=== PATIENT | male | born 1940 | race Caucasian/White ===

== ENCOUNTER 2016-05-03 10:49 | Inpatient (IN) | payer MEDICARE ==
[~2016-05-03] VITALS: Ht 185.4 cm; Wt 84.9 kg
[2016-05-03 10:51] VITALS: BP 118/73; PULSE 102; RESP 20; TEMP 97.7; O2SAT 99
[2016-05-03 11:24] VITALS: BP 131/71; PULSE 99; RESP 20; O2SAT 99
[2016-05-03] MEDS ORDERED: VANCOMYCIN INJ 1,000 MG in SODIUM CHLOR 0.9% 250 ML INJ 250 ML IV ONE (11:30)
[2016-05-03] MEDS ORDERED: SODIUM CHLOR 0.9% 1000 ML INJ 1,000 ML IV SCH (11:30)
[2016-05-03] MEDS ORDERED: PIPERACIL-TAZO 4.5 GM PREMIX 100 ML IV ONE (11:30)
--- NOTE | 2016-05-03 11:30 | PD ---
HPI Chief Complaint: Laceration/Skin Injury Time Seen by Provider: 11:09 Travel History International Travel<30 days: No Contact w/Intl Traveler<30days: No Traveled to known affect area: No History of Present Illness HPI The patient is a 75 year-old male who presents to the emergency department after being referred to the emergency department by podiatry for admission, IV antibiotics, and repeat MRI of the left foot. 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 He notes a chronic ulcer to the bottom of the left foot and states he had an outpatient MRI performed 1 week ago which revealed cellulitis. He then had increasing redness to the left foot and was seen by podiatry and referred to the emergency department for further evaluation. He does note the second toe the left foot has enlarged, is not erythematous, states the erythema spreading up the left foot. He also complains of increasing ulceration on the bottom of the left foot. The patient also complains of toe pain over the second digit of the right foot with small amount of drainage. He also notes a superficial ulceration to the bottom of the right foot. The patient does have a history of diabetes. The patient's primary physician is in [place], [place]. He denies any associated fever, chills, or sweats. PFS Past Medical History Narrative Medical Diabetes Family History Narrative Family History Noncontributory Social History Tobacco Use: No Allergies-Medications (Allergen,Severity, Reaction): Coded Allergies: No Known Allergies (Unverified , 05/03/16) Reported Meds & Prescriptions Reported Meds & Active Scripts Active Reported Lantus Inj (Insulin Glargine) 1,000 Unit/10 Ml Vial 32 Units SQ HS Gabapentin 300 Mg Cap 300 Mg PO HS Digoxin 0.125 Mg Tab 0.125 Mg PO DAILY Warfarin 5 Mg Tab 5 Mg PO DIRECTED ONLY ON SUNDAY Warfarin 2.5 Mg Tab 2.5 Mg PO DAILY Glimepiride 2 Mg Tab 2 Mg PO BIDAC Metformin (Metformin HCl) 500 Mg Tab 500 Mg PO BIDPC With meals Metoprolol Tartrate 50 Mg Tab 50 Mg PO BID Famotidine 20 Mg Tab 20 Mg PO Review of Systems Except as stated in HPI: all other systems reviewed are Neg General / Constitutional: No: Fever HENT: No: Lightheadedness Cardiovascular: No: Chest Pain or Discomfort Respiratory: No: Shortness of Breath Gastrointestinal: No: Nausea, Vomiting, Abdominal Pain Musculoskeletal: Positive: Edema, Pain Neurologic: Positive: Sensory Disturbance Physical Exam Narrative GENERAL: Awake, alert, pleasant 75-year-old male who appears his stated age and is in no acute respiratory distress. SKIN: Warm and dry. HEAD: Atraumatic. Normocephalic. EYES: Pupils equal and round. No scleral icterus. No injection or drainage. ENT: Patient has a lesion over the bridge of the right nose, possible squamous cell versus basal cell. NECK: Trachea midline. No JVD. CARDIOVASCULAR: Regular, heart rate 102. RESPIRATORY: No accessory muscle use. Clear to auscultation. Breath sounds equal bilaterally. GASTROINTESTINAL: Abdomen soft, non-tender, nondistended. No rebound tenderness. MUSCULOSKELETAL: Patient has an ulceration on the bottom of the left foot with mild erythema. The dorsal aspect left foot is edematous, erythematous, with erythema and edema of the second digit left foot. The patient also has an open draining wound on the distal aspect of the second digit right foot with purulent drainage. Superficial ulceration on the bottom of the right foot. Positive distal pulses. NEUROLOGICAL: Awake and alert. No obvious cranial nerve deficits. Motor grossly within normal limits. Normal speech. PSYCHIATRIC: Appropriate mood and affect; insight and judgment normal. Data Data Last Documented VS Vital Signs Date Time Temp Pulse Resp B/P Pulse Ox O2 Delivery O2 Flow Rate FiO2 05/03/16 11:24 99 20 131/71 99 05/03/16 10:51 97.7 Room Air Orders Complete Blood Count With Diff (05/03/16 11:21) Comprehensive Metabolic Panel (05/03/16 11:21) Lactic Acid (05/03/16 11:21) Blood Culture (05/03/16 11:21) Mri Foot W&W/O Contrast (05/03/16 ) C-Reactive Protein (Crp) (05/03/16 11:21) Vancomycin Inj (Vancomycin Inj) (05/03/16 11:30) Piperacil-Tazo 4.5 Gm Premix (Zosyn 4.5 (05/03/16 11:30) Sodium Chlor 0.9% 1000 Ml Inj (Ns 1000 M (05/03/16 11:30) Wound Culture And Gram Stain (05/03/16 11:21) Consult Podiatry (05/03/16 ) Admit Order (Ed Use Only) (05/03/16 13:35) Labs Laboratory Tests Test 05/03/16 05/03/16 11:55 12:30 White Blood Count 9.6 TH/MM3 Red Blood Count 4.02 MIL/MM3 Hemoglobin 12.9 GM/DL Hematocrit 38.9 % Mean Corpuscular Volume 96.7 FL Mean Corpuscular Hemoglobin 32.0 PG Mean Corpuscular Hemoglobin 33.1 % Concent Red Cell Distribution Width 15.1 % Platelet Count 316 TH/MM3 Mean Platelet Volume 6.6 FL Neutrophils (%) (Auto) 68.9 % Lymphocytes (%) (Auto) 21.0 % Monocytes (%) (Auto) 7.5 % Eosinophils (%) (Auto) 1.6 % Basophils (%) (Auto) 1.0 % Neutrophils # (Auto) 6.6 TH/MM3 Lymphocytes # (Auto) 2.0 TH/MM3 Monocytes # (Auto) 0.7 TH/MM3 Eosinophils # (Auto) 0.2 TH/MM3 Basophils # (Auto) 0.1 TH/MM3 CBC Comment DIFF FINAL Differential Comment Lactic Acid Level 2.2 mmol/L Sodium Level 132 MEQ/L Potassium Level 4.2 MEQ/L Chloride Level 100 MEQ/L Carbon Dioxide Level 25.3 MEQ/L Anion Gap 7 MEQ/L Blood Urea Nitrogen 15 MG/DL Creatinine 1.28 MG/DL Estimat Glomerular Filtration 55 ML/MIN Rate Random Glucose 236 MG/DL Calcium Level 8.6 MG/DL Total Bilirubin 0.4 MG/DL Aspartate Amino Transf 17 U/L (AST/SGOT) Alanine Aminotransferase 20 U/L (ALT/SGPT) Alkaline Phosphatase 90 U/L C-Reactive Protein 3.60 MG/DL Total Protein 8.4 GM/DL Albumin 2.7 GM/DL MDM Medical Decision Making Medical Screen Exam Complete: Yes Emergency Medical Condition: Yes Medical Record Reviewed: Yes Interpretation(s) Laboratory Tests Test 05/03/16 05/03/16 11:55 12:30 White Blood Count 9.6 TH/MM3 Red Blood Count 4.02 MIL/MM3 Hemoglobin 12.9 GM/DL Hematocrit 38.9 % Mean Corpuscular Volume 96.7 FL Mean Corpuscular Hemoglobin 32.0 PG Mean Corpuscular Hemoglobin 33.1 % Concent Red Cell Distribution Width 15.1 % Platelet Count 316 TH/MM3 Mean Platelet Volume 6.6 FL Neutrophils (%) (Auto) 68.9 % Lymphocytes (%) (Auto) 21.0 % Monocytes (%) (Auto) 7.5 % Eosinophils (%) (Auto) 1.6 % Basophils (%) (Auto) 1.0 % Neutrophils # (Auto) 6.6 TH/MM3 Lymphocytes # (Auto) 2.0 TH/MM3 Monocytes # (Auto) 0.7 TH/MM3 Eosinophils # (Auto) 0.2 TH/MM3 Basophils # (Auto) 0.1 TH/MM3 CBC Comment DIFF FINAL Differential Comment Lactic Acid Level 2.2 mmol/L Sodium Level 132 MEQ/L Potassium Level 4.2 MEQ/L Chloride Level 100 MEQ/L Carbon Dioxide Level 25.3 MEQ/L Anion Gap 7 MEQ/L Blood Urea Nitrogen 15 MG/DL Creatinine 1.28 MG/DL Estimat Glomerular Filtration 55 ML/MIN Rate Random Glucose 236 MG/DL Calcium Level 8.6 MG/DL Total Bilirubin 0.4 MG/DL Aspartate Amino Transf 17 U/L (AST/SGOT) Alanine Aminotransferase 20 U/L (ALT/SGPT) Alkaline Phosphatase 90 U/L C-Reactive Protein 3.60 MG/DL Total Protein 8.4 GM/DL Albumin 2.7 GM/DL Differential Diagnosis Differential diagnosis includes cellulitis, abscess, infected wound, diabetic foot ulcer, osteomyelitis. Narrative Course IV was established, labs were drawn and sent, and the patient was placed on cardiac telemetry monitoring and continuous pulse oximetry monitoring. An MRI with and without contrast was ordered per podiatry's recommendations to evaluate for possible abscess and/or osteomyelitis. The patient was administered vancomycin and Zosyn after blood cultures and lactic acid were sent to lab. The patient was placed on maintenance IV fluids. The patient's white count is normal, lactic acid is minimally elevated at 2.2. MRI is pending. Consult was placed to podiatry. I discussed the patient with the on- call hospitalist, Dr. Shore, who agrees with admission. Physician Communication Physician Communication I discussed the patient with Dr. Shore who with agrees with admission. Diagnosis Primary Impression: Cellulitis of left foot Admitting Information Admitting Physician Requests: Admit Condition: Stable Joseph Lopez MD May 03, 2016 11:30
[2016-05-03 12:08] LABS: AUTOMATED NEUTROPHIL # 6.6 TH/MM3 (1.8-7.7); BASOPHIL # 0.1 TH/MM3 (0-0.2); EOSINOPHIL # 0.2 TH/MM3 (0-0.4); EOSINOPHIL % 1.6 % (0.0-4.0); HEMATOCRIT 38.9 % (39.0-51.0); HEMO FLAGS DIFF FINAL; MEAN CELL VOLUME 96.7 FL (80.0-100.0); MEAN CORPUSCULAR HGB CONC 33.1 % (32.0-36.0); MONO % 7.5 % (0.0-8.0); NEUT % 68.9 % (16.0-70.0); PLATELET COUNT 316 TH/MM3 (150-450); RED BLOOD COUNT 4.02 MIL/MM3 (4.50-5.90); RED CELL DISTRIBUTION WIDTH 15.1 % (11.6-17.2); WHITE BLOOD COUNT 9.6 TH/MM3 (4.0-11.0)
[2016-05-03] MEDS ORDERED: DIGO0.12 PO (12:52)
[2016-05-03] MEDS ORDERED: GLIM2TAB PO (12:52)
[2016-05-03] MEDS ORDERED: FAMO20TA2 PO (12:52)
[2016-05-03] MEDS ORDERED: GABA300C5 PO (12:52)
[2016-05-03] MEDS ORDERED: METO50TA PO (12:52)
[2016-05-03] MEDS ORDERED: WARF-23 PO (12:52)
[2016-05-03] MEDS ORDERED: WARF-18 PO (12:52)
[2016-05-03] MEDS ORDERED: METF500T PO (12:52)
[2016-05-03] MEDS ORDERED: LANTUS2P SQ (12:52)
[2016-05-03 13:06] LABS: ANION GAP 7 MEQ/L (5-15); AST (GOT) 17 U/L (15-37); BICARBONATE 25.3 MEQ/L (21.0-32.0); BLOOD UREA NITROGEN 15 MG/DL (7-18); CHLORIDE 100 MEQ/L (98-107); GLOMERULAR FILTRATION RATE 55 ML/MIN (>89); POTASSIUM 4.2 MEQ/L (3.5-5.1); SODIUM (NA) 132 MEQ/L (136-145)
[2016-05-03 13:10] LABS: ALKALINE PHOSPHATASE 90 U/L (45-117); ALT (GPT) 20 U/L (12-78); TOTAL BILIRUBIN ADULT 0.4 MG/DL (0.2-1.0)
[2016-05-03] MEDS ORDERED: GLUCAGON 1 MG/ML VIAL OTHER PRN (13:45)
[2016-05-03] MEDS ORDERED: NALOXONE HCL 0.4 MG/ML AMP IV PRN (13:45)
[2016-05-03] MEDS ORDERED: SODIUM CHLORIDE 0.9% FLUSH 5 ML FLUSH FLUSH PRN (13:45)
[2016-05-03] MEDS ORDERED: ACETAMINOPHEN 325 MG TAB PO PRN (13:45)
[2016-05-03] MEDS ORDERED: Vancomycin Consult Pharmacy 1 EA OTHER SCH (13:45)
[2016-05-03] MEDS ORDERED: ONDANSETRON HCL 4 MG/2 ML VIAL IVP PRN (13:45)
[2016-05-03] MEDS ORDERED: MAGNESIUM HYDROXIDE SUSP 30 ML CUP PO PRN (13:45)
[2016-05-03] MEDS ORDERED: DEXTROSE 50% IN WATER 50 ML VIAL(D50) IV PUSH PRN (13:45)
[2016-05-03] MEDS ORDERED: GADODIAMIDE PF 287 MG/ML 20 ML VIAL (for RAD MRI) IV ONE (14:33)
[2016-05-03] MEDS: INSULIN ASPART SUPPLEMENTAL SCALE SQ SCH ×2 (16:49→21:00)
--- NOTE | 2016-05-03 17:23 | HHI.HP ---
[facility] Primary [facility] Physician Ian Lambert MD Admission Diagnosis cellulitis left foot rule out osteomyelitis Diagnoses: Chief Complaint: Nonhealing ulceration plantar surface left foot with cellulitis Travel History International Travel<30 Days: No Contact w/Intl Traveler <30 Da: No Traveled to Known Affected Are: No History of Present Illness This is a pleasant 75-year-old male patient with past medical history which includes insulin-dependent diabetes mellitus, bleeding duodenal ulcer myocardial infarction CAD s/p cardiac stent and atrial fibrillation followed by Dr. De Paz. Patient reports approximately 4 months ago he stepped on a trimmer helper with his left foot and has been following with outpatient president practicing urologist reports that the pain left foot has had constant aching pain for the past 4 months but over the past 2 days the pain has been increased has increased in intensity. Patient also reports edema of the left foot with redness over the past 2 days. Patient was referred to the emergency department for MRI and evaluation by Dr. España by his outpatient president practicing urologist. Patient noted to have open ulceration plantar surface left foot and erythema to second digit left foot. Right foot second digit erythematous with ulceration present non- ulceration present plantar surface of right foot as well. Patient denies chest pain shortness of breath nausea vomiting diarrhea constipation fevers or chills Review of Systems Other All other systems reviewed and negative except as mentioned in history of present illness Past Family Social History Past Medical History insulin-dependent diabetes mellitus, bleeding duodenal ulcer myocardial infarction CAD s/p cardiac stent and atrial fibrillation Past Surgical History Cardiac stents Reported Medications Lantus Inj (Insulin Glargine) 1,000 Unit/10 Ml Vial 32 Units SQ HS Gabapentin 300 Mg Cap 300 Mg PO HS Digoxin 0.125 Mg Tab 0.125 Mg PO DAILY Warfarin 5 Mg Tab 5 Mg PO DIRECTED ONLY ON SUNDAY Warfarin 2.5 Mg Tab 2.5 Mg PO DAILY Glimepiride 2 Mg Tab 2 Mg PO BIDAC Metformin (Metformin HCl) 500 Mg Tab 500 Mg PO BIDPC With meals Metoprolol Tartrate 50 Mg Tab 50 Mg PO BID Famotidine 20 Mg Tab 20 Mg PO Allergies: Coded Allergies: No Known Allergies (Unverified , 05/03/16) Active Ordered Medications Current Medications Medications (Trade) Dose Ordered Sig/Cornelio Route Start Time Stop Time Status Last Admin (Lanoxin) 0.125 mg DAILY PO 05/04/16 09:00 (Neurontin) 300 mg HS PO 05/03/16 21:00 (Levemir Inj) 32 units HS SQ 05/03/16 21:00 Hold (Lopressor) 50 mg BID PO 05/03/16 21:00 (NS Flush) 2 ml UNSCH PRN FLUSH 05/03/16 13:45 (NS Flush) 2 ml BID FLUSH 05/03/16 21:00 (Tylenol) 650 mg Q4H PRN PO 05/03/16 13:45 (Zofran Inj) 4 mg Q6H PRN IVP 05/03/16 13:45 (Milk Of Magnesia Liq) 30 ml Q12H PRN PO 05/03/16 13:45 Naloxone HCl 0.4 mg 0.4 mg UNSCH PRN IV 05/03/16 13:45 Pharmacy Profile Note 0 ml @ 0 mls/hr UNSCH OTHER 05/03/16 13:45 (Zosyn 3.375 Gm Premix) 50 ml @ 100 mls/hr Q8H IV 05/03/16 20:00 (D50w (Vial) Inj) 25 ml UNSCH PRN IV PUSH 05/03/16 13:45 Glucagon 1 mg 1 mg UNSCH PRN OTHER 05/03/16 13:45 (Vancomycin Inj/ NS 500 ml Inj) 513 ml @ 250 mls/hr Q18H IV 05/04/16 04:00 Miscellaneous Information SPECIFIC LAB TO BE DRAWN:VANCOMY... ONCE ONCE XX 05/05/16 15:45 05/05/16 15:46 (Levemir Inj) 15 units HS SQ 05/03/16 21:00 05/03/16 23:00 Family History Patient reports he does not know his mother father or family past medical history Social History Denies tobacco use EtOH use or illicit drug use Physical Exam Vital Signs Vital Signs Date Time Temp Pulse Resp B/P Pulse Ox O2 Delivery O2 Flow Rate FiO2 05/03/16 11:24 99 20 131/71 99 05/03/16 10:51 97.7 102 20 118/73 99 Room Air Physical Exam GENERAL: This is a well-nourished, well-developed patient, in no apparent distress. SKIN: open ulceration plantar surface left foot and erythema to second digit left foot. Right foot second digit erythematous with ulceration present non- ulceration present plantar surface of right foot as well. HEAD: Atraumatic. Normocephalic. No temporal or scalp tenderness. EYES: Pupils equal round and reactive. Extraocular motions intact. No scleral icterus. No injection or drainage. ENT: Nose without bleeding, purulent drainage or septal hematoma. Throat without erythema, tonsillar hypertrophy or exudate. Uvula midline. Airway patent. NECK: Trachea midline. No JVD or lymphadenopathy. Supple, nontender, no meningeal signs. CARDIOVASCULAR: Irregularly irregular rhythm, rate controlled RESPIRATORY: Faint crackles right base cleared with cough GASTROINTESTINAL: Abdomen soft, non-tender, nondistended. No hepato-splenomegaly , or palpable masses. No guarding. MUSCULOSKELETAL: No calf tenderness. Negative Homans sign bilaterally. NEUROLOGICAL: Awake and alert. Motor and sensory grossly within normal limits. Five out of 5 muscle strength in all muscle groups. Normal speech. Laboratory Laboratory Tests Test 05/03/16 05/03/16 11:55 12:30 White Blood Count 9.6 Red Blood Count 4.02 Hemoglobin 12.9 Hematocrit 38.9 Mean Corpuscular Volume 96.7 Mean Corpuscular Hemoglobin 32.0 Mean Corpuscular Hemoglobin 33.1 Concent Red Cell Distribution Width 15.1 Platelet Count 316 Mean Platelet Volume 6.6 Neutrophils (%) (Auto) 68.9 Lymphocytes (%) (Auto) 21.0 Monocytes (%) (Auto) 7.5 Eosinophils (%) (Auto) 1.6 Basophils (%) (Auto) 1.0 Neutrophils # (Auto) 6.6 Lymphocytes # (Auto) 2.0 Monocytes # (Auto) 0.7 Eosinophils # (Auto) 0.2 Basophils # (Auto) 0.1 CBC Comment DIFF FINAL Differential Comment Lactic Acid Level 2.2 Sodium Level 132 Potassium Level 4.2 Chloride Level 100 Carbon Dioxide Level 25.3 Anion Gap 7 Blood Urea Nitrogen 15 Creatinine 1.28 Estimat Glomerular Filtration 55 Rate Random Glucose 236 Calcium Level 8.6 Total Bilirubin 0.4 Aspartate Amino Transf 17 (AST/SGOT) Alanine Aminotransferase 20 (ALT/SGPT) Alkaline Phosphatase 90 C-Reactive Protein 3.60 Total Protein 8.4 Albumin 2.7 Date/Time Procedure Status Source Growth 05/03/16 11:55 Gram Stain Received Wound Toe Pending 05/03/16 11:55 Wound Culture Received Wound Toe Pending 05/03/16 11:55 Aerobic Blood Culture Received Blood Peripheral Pending 05/03/16 11:55 Anaerobic Blood Culture Received Blood Peripheral Pending Result Diagram: 05/03/16 1155 05/03/16 1230 Assessment and Plan Assessment and Plan This is a pleasant 75-year-old male patient with past medical history which includes insulin-dependent diabetes mellitus, bleeding duodenal ulcer myocardial infarction CAD s/p cardiac stent and atrial fibrillation followed by Dr. De Paz. Patient reports approximately 4 months ago he stepped on a trimmer helper with his left foot and has been following with outpatient president practicing urologist reports that the pain left foot has had constant aching pain for the past 4 months but over the past 2 days the pain has been increased has increased in intensity. Patient also reports edema of the left foot with redness over the past 2 days. Patient was referred to the emergency department for MRI and evaluation by Dr. España by his outpatient president practicing urologist. Cellulitis left foot rule out abscess/osteomyelitis Failed outpatient therapy Consult Dr. España podiatry Zosyn and vancomycin given in emergency department will continue Zosyn and vancomycin with pharmacy to dose Blood cultures obtained and pending Wound culture pending MRI left foot ordered and pending Possible upcoming procedure tomorrow will give patient half of regular Levemir dose tonight and NPO after midnight Diabetes mellitus will hold the glimepiride and metformin Accu-Cheks before meals at bedtime with sliding scale insulin coverage Hold patient's Levemir 32 units daily at bedtime half home Levemir dose as patient is nothing by mouth after midnight Atrial fibrillation continue digoxin and metoprolol Hold Coumadin ending procedure DVT prophylaxis patient was on Coumadin prior to admission currently on hold will Discussed with ER provider, patient, RN and Dr. hSore Discussed Condition With The exam, history, and the medical decision-making described in the above note were completed with the assistance of the mid-level provider. I reviewed and agree with the findings presented. I attest that I had a [id number] encounter with the patient on the same day, and personally performed and documented my assessment and findings in the medical record. Patient admitted with a diabetic foot ulcer requiring surgical intervention. Plan per podiatry for intervention in the AM. Physician Certification 2 Midnight Certification Type: Admission for Inpatient Services Order for Inpatient Services The services are ordered in accordance with Medicare regulations or non- Medicare payer requirements, as applicable. In the case of services not specified as inpatient-only, they are appropriately provided as inpatient services in accordance with the 2-midnight benchmark. Estimated LOS (days): 4 days is the estimated time the patient will need to remain in the hospital, assuming treatment plan goals are met and no additional complications. Post-Hospital Plan: Home Karin Gutierrez May 03, 2016 17:23 Ankita Shore MD May 03, 2016 23:22
[2016-05-03 17:45] VITALS: BP 127/70; PULSE 86; RESP 20; TEMP 97.4; O2SAT 99
[2016-05-03 19:25] LABS: APTT (PATIENT) 47.6 SEC (24.3-30.1); INTERNATIONAL NORMALIZED RATIO 3.3 RATIO; PROTHROMBIN TIME - PATIENT 38.8 SEC (9.8-11.6)
[2016-05-03] MEDS: PIPERACIL-TAZO 3.375 GM PREMIX 50 ML IV SCH (20:00)
[2016-05-03] MEDS: SODIUM CHLORIDE 0.9% FLUSH 5 ML FLUSH FLUSH SCH (21:00)
[2016-05-03] MEDS ORDERED: INSULIN DETEMIR 100 UNITS/ML VIAL SQ SCH (21:00)
[2016-05-03 21:07] VITALS: BP 125/75; PULSE 92; RESP 16; TEMP 98; O2SAT 98
[2016-05-03] MEDS: GABAPENTIN 300 MG CAP PO SCH (21:20)
[2016-05-03] MEDS: METOPROLOL TARTRATE 50 MG TAB PO SCH (21:20)
[2016-05-04 00:05] VITALS: BP 115/65; PULSE 80; RESP 16; TEMP 97.9; O2SAT 96
[2016-05-04] MEDS ORDERED: VANCOMYCIN INJ 1,000 MG in SODIUM CHLOR 0.9% 250 ML INJ 250 ML IV SCH (01:00)
[2016-05-04] MEDS: PIPERACIL-TAZO 3.375 GM PREMIX 50 ML IV SCH ×3 (03:05→20:29)
[2016-05-04] MEDS ORDERED: VANCOMYCIN INJ 1,300 MG in SODIUM CHLORID 0.9% 500 ML INJ 500 ML IV SCH (04:00)
[2016-05-04 05:15] VITALS: BP 143/68; PULSE 77; RESP 16; TEMP 97.6; O2SAT 96
[2016-05-04] MEDS: INSULIN ASPART SUPPLEMENTAL SCALE SQ SCH ×3 (06:42→20:56)
[2016-05-04 08:00] VITALS: BP 120/69; PULSE 68; RESP 20; TEMP 97.7; O2SAT 99
--- NOTE | 2016-05-04 08:13 | MB ---
cc: JJ MIN DPM DATE OF CONSULTATION 05/03/2016 REASON FOR CONSULTATION Right second digit ulcer, left foot second digit ulcer, possible osteomyelitis left second metatarsal. HISTORY OF PRESENT ILLNESS This is a 75-year-old male who is known to my associate, Dr. Kasper. There has been increased purulence and drainage within the last one week. The patient has known clinical osteomyelitis probing deep. The patient was instructed by Dr. Kasper to go to the hospital for now definitive treatment. Currently, I am seeing the patient bedside with his family. He has had the ulcer of the bilateral feet for many months. The right foot has not ever infected, however has been an issue. The left foot has been an issue for greater than four weeks. They wish for a more definitive plan. He is seen bedside with his son. PAST MEDICAL HISTORY Positive for: 1. Insulin-dependent diabetes 2. Duodenal ulcer 3. History of myocardial infarction. 4. CAD status post stent placement with a history of atrial fibrillation. MEDICATIONS Reported outpatient medications, he is on Coumadin. Please see complete med list in chart. Inpatient medications, he is receivin. Vancomycin 2. Zosyn ALLERGIES There are no known drug allergies. PHYSICAL EXAM VITALS: Temperature is 97.6, pulse rate 77, respiratory rate 16, blood pressure 143/68. He is sating 96% on room air. GENERAL: This is an alert and oriented male seen bedside exhibiting nonlabored respirations. EXTREMITIES: Right lower extremity is examined. There is noted to be a semi-reducible hammer toe contracture with distal partial thickness ulcer of the right second digit. It does not appear to be inflamed, have drainage on probing deep. There is also a prominent second metatarsal head with callus formation of the ball of the foot plantarly. Right foot pedal pulses are palpable. Sensation is absent to light touch distal to the ankle, but intact to deep pressure. There is good muscle strength. There is no crepitus or instability. The left lower extremity is examined. There is a full-thickness ulceration. There at the plantar aspect of the second metatarsal head. Upon pressure to the area, there is drainage. This appears to probe deep possibly the second metatarsal, as well as proximal phalanx base. There is a rigid contracture with a partial thickness ulcer at the distal aspect of the left second digit. Pedal pulses are palpable of the left foot, however sensation is not intact to light touch or deep pressure distal to the patient's ankle. There is good muscle strength. No crepitus or instability of the foot or ankle. LABORATORY FINDINGS White blood cell 9.6, hemoglobin/hematocrit 12 and 38, platelet count 316. Chem-7 sodium 132, potassium is 4.2, chloride 100, CO2 25, BUN is 15, random glucose is 236. Coagulation profile, INR is 3.3, blood culture and wound culture ordered and pending. MRI has not been formally read by radiologist, but there appears to be concerned for osteomyelitis at the level of the second digit as well as second metatarsal head with possible deep abscess back to ASSESSMENT/PLAN 1. Right second digit ulcer with pre-ulcerative lesion, digit contracture right foot. 2. Left second digit ulcer, left forefoot ulcer with likely osteomyelitis of the left second metatarsal head, as well as base of proximal phalanx left second digit. PLAN We will long discussion regarding treatment options including debridement and long-term IV antibiotics. The patient wished for more definitive treatment. We opted to move forward with a flexor tenotomy of the right second digit with metatarsal head resection to alleviate pressure. The left foot we opted for second digit amputation with removal of infected bone second metatarsal head. The patient may need long-term IV antibiotics. We will plan to do this within the next 12-24 hours. The patient will likely need infectious disease consultation if the bone margin appears to be positive for osteomyelitis. However, I will do my best to resect the majority of the infection. The patient understood there are risks, possible need for more surgery, need for more amputation, deformity. No guarantees were given or implied. The patient understood and wished to proceed with my surgical plan. CANDELARIA Duenas/ASHVIN /7:37 AM 7:51 AM
--- NOTE | 2016-05-04 08:57 | RADRPT ---
EXAM DATE/TIME: 05/03/2016 14:04 [facility] COMPARISON: No previous studies available for comparison. INDICATIONS : Cellulitis. CONTRAST: 16 cc Omniscan (gadodiamide) IV MEDICAL HISTORY : Diabetes mellitus type 2. SURGICAL HISTORY : None. ENCOUNTER: Initial ACUITY: 2 day PAIN SCORE: 4/10 LOCATION: Left Foot TECHNIQUE: Multiplanar, multisequence MRI examination was performed without contrast and after the intravenous a dministration of gadolinium. FINDINGS: There is a deep soft tissue ulcer plantar to the first and second metatarsophalangeal joints. Abnorma l edema, induration and enhancement seen extending down to the second metatarsophalangeal joint and t o a lesser extent the first and third. The soft tissue edema tracks proximally along flexor digitorum brevis all the way to the calcaneal origin of the muscle. I don't see a drainable soft tissue absces s. The signal changes are seen almost throughout but especially the plantar aspect of the second toe proximal phalanx and also focally of the plantar aspect of the second metatarsal head. The soft tissu e signal changes are in close proximity to the fibular sesamoid but I don't see clear osteomyelitis o f this bone, the first metatarsophalangeal joint or the third metatarsophalangeal joint. CONCLUSION: 1. Deep soft tissue ulcer plantar/medial forefoot and with associated osteomyelitis of the second toe proximal phalanx and focally of the plantar margin of the second metatarsal head. 2. Reactive versus infectious myositis extends proximally to the level of the hindfoot, primarily wit hin the flexor digitorum brevis muscle. No drainable abscess. Ian Fernandes MD on May 04, 2016 at 8:48 Board Certified Radiologist. This report was verified electronically.
[2016-05-04] MEDS: METOPROLOL TARTRATE 50 MG TAB PO SCH ×2 (09:42→20:52)
[2016-05-04] MEDS: SODIUM CHLORIDE 0.9% FLUSH 5 ML FLUSH FLUSH SCH ×2 (09:43→20:37)
[2016-05-04] MEDS: DIGOXIN 0.125 MG TAB PO SCH (09:43)
[2016-05-04 09:46] LABS: ALKALINE PHOSPHATASE 78 U/L (45-117); ALT (GPT) 17 U/L (12-78); ANION GAP 6 MEQ/L (5-15); AST (GOT) 13 U/L (15-37); BICARBONATE 26.2 MEQ/L (21.0-32.0); BLOOD UREA NITROGEN 16 MG/DL (7-18); CHLORIDE 98 MEQ/L (98-107); GLOMERULAR FILTRATION RATE 60 ML/MIN (>89); POTASSIUM 3.9 MEQ/L (3.5-5.1); SODIUM (NA) 130 MEQ/L (136-145); TOTAL BILIRUBIN ADULT 0.4 MG/DL (0.2-1.0)
--- NOTE | 2016-05-04 10:53 | HHI.PR ---
Subjective Remarks Patient reports that he is feeling okay. Awaiting surgery today. Objective Vitals Vital Signs Date Time Temp Pulse Resp B/P Pulse Ox O2 Delivery O2 Flow Rate FiO2 05/04/16 08:00 97.7 68 20 120/69 99 05/04/16 05:15 97.6 77 16 143/68 96 05/04/16 00:05 97.9 80 16 115/65 96 05/03/16 21:07 98.0 92 16 125/75 98 05/03/16 20:30 Room Air 05/03/16 17:45 97.4 86 20 127/70 99 05/03/16 11:24 99 20 131/71 99 05/03/16 10:51 97.7 102 20 118/73 99 Room Air I/O 05/03/16 05/03/16 05/03/16 05/04/16 05/04/16 05/04/16 07:00 15:00 23:00 07:00 15:00 23:00 Intake Total 480 ml 0 ml Output Total 575 ml 650 ml Balance -95 ml -650 ml Intake Oral 480 ml 0 ml Output Urine Total 575 ml 650 ml # Voids 1 # Bowel Movements 0 0 Result Diagram: 05/03/16 1155 05/04/16 0750 Imaging Last Impressions Foot MRI 05/03/16 0000 Signed Impressions: Service Date/Time: Tuesday, May 03, 2016 14:04 - CONCLUSION: 1. Deep soft tissue ulcer plantar/medial forefoot and with associated osteomyelitis of the second toe proximal phalanx and focally of the plantar margin of the second metatarsal head. 2. Reactive versus infectious myositis extends proximally to the level of the hindfoot, primarily within the flexor digitorum brevis muscle. No drainable abscess. Ian Fernandes MD Objective Remarks GENERAL: This is a well-nourished, well-developed patient, in no apparent distress. SKIN: open ulcer plantar surface left foot and erythema to second digit left foot. Right foot second digit erythematous with ulceration present. Another non ulcerated area pressure point on the right plantar surface. CARDIOVASCULAR: Normal rate and regular rhythm without murmurs, gallops, or rubs. RESPIRATORY: Good respiratory efforts. Breath sounds equal and clear to auscultation bilaterally. GASTROINTESTINAL: Abdomen soft, non-tender, non-distended. Normal active bowel sounds MUSCULOSKELETAL: Extremities without cyanosis, or edema. NEURO: Alert & Oriented x4 to person, place, time, situation. Moves all ext x4 PSYCH: Appropriate mood and affect. A/P Assessment and Plan 75-year-old male patient with: Diabetic left foot wound/osteomyelitis Failed outpatient therapy Consult Dr. España following. Plan for debridement today. Awaiting op findings, likely need ID consult. Continue Zosyn and vancomycin with pharmacy to dose Blood cultures obtained and pending Wound culture pending Diabetes mellitus: hold glimepiride and metformin Accu-Cheks before meals at bedtime with sliding scale insulin coverage Hold patient's Levemir 32 units daily at bedtime half home Levemir dose for preop Atrial fibrillation continue digoxin and metoprolol Hold Coumadin pending procedure DVT prophylaxis patient was on Coumadin prior to admission currently on hold will Ankita Shore MD May 04, 2016 10:53
[2016-05-04 12:00] VITALS: BP 120/68; PULSE 68; RESP 20; TEMP 98.7; O2SAT 99
[2016-05-04] MEDS ORDERED: ONDANSETRON HCL 4 MG/2 ML VIAL IV PUSH ONE (12:00)
[2016-05-04] MEDS ORDERED: ePHEDrine/NS 50 MG/5 ML SYR IV ONE (12:00)
[2016-05-04] MEDS ORDERED: PHENYLEPH/NS 1000 MCG/10 ML SYR IV ONE (12:00)
[2016-05-04] MEDS ORDERED: PROPOFOL 200 MG/20 ML AMP IV ONE (12:00)
--- NOTE | 2016-05-04 14:09 | EKG ---
Date Performed: 05/04/2016 Time Performed: 08:29:12 PTAGE: 75 years EKG: ATRIAL FIBRILLATION ST DEVIATION AND MODERATE T-WAVE ABNORMALITY, CONSIDER LATERAL ISCHEMIA Clinical correlation is recommended ABNORMAL ECG NO PREVIOUS TRACING DOCTOR: Mode Zayas Interpretating Date/Time 05/04/2016 14:08:36
[2016-05-04] MEDS ORDERED: BUPIVACAINE HCL PF 0.25% 30 ML VIAL ONE (15:07)
[2016-05-04] MEDS ORDERED: BUPIVACAINE HCL PF 0.5% 30 ML VIAL ONE (15:31)
[2016-05-04] MEDS ORDERED: ceFAZolin INJ 1,000 MG VIAL ONE (15:31)
[2016-05-04] MEDS ORDERED: GENTAMICIN SULFATE 80 MG/2 ML VIAL ONE (15:31)
[2016-05-04] MEDS ORDERED: FAMOTIDINE 20 MG/2 ML VIAL ONE (15:59)
[2016-05-04] MEDS ORDERED: MIDAZOLAM HCL 2 MG/2 ML VIAL ONE ×2 (15:59→18:31)
--- NOTE | 2016-05-04 18:22 | HHI.PR ---
Immediate Post Op Note Procedure Date: May 04, 2016 Pre Op Diagnosis: right 2nd digit hammertoe, metatarsalgia left 2nd digit OM, ulcer, metatarsalgia Post Op Diagnosis: same Surgeon: Bebeto Valle Reception Clerk(s): scrub Procedure: Right 2nd digit flexor tenotomy with 2nd metatarsal head resection Left 2nd digit amputation, 2nd metatarsal head resection, ulcer ellipse and wound closure plantar foot Findings: see op dict Complications: none Specimen(s) removed: bn rt and left ft for path, micro bone swab rt and left for micro Estimated blood loss: less 50 mL Anesthesia: General, Local Drains: Other IVF Patient to: Other Patient Condition: Good Implant/Devices: SEE IMPLANT LOG (if applicable) Date/Time of Procedure: SEE SURGICAL CARE RECORD Bebeto Valle DPM May 04, 2016 18:22
[2016-05-04] MEDS ORDERED: *morphine SULFATE 8 MG/ML PERIprocedure ONLY ONE ×2 (18:30→18:43)
[2016-05-04 20:24] VITALS: BP 132/81; PULSE 82; RESP 16; TEMP 96; O2SAT 99
[2016-05-04] MEDS: GABAPENTIN 300 MG CAP PO SCH (20:52)
[2016-05-04] MEDS: MORPHINE SULFATE 4 MG/ML INJ IV PUSH PRN (22:09)
[2016-05-04] MEDS: VANCOMYCIN INJ 1,500 MG in SODIUM CHLORID 0.9% 500 ML INJ 500 ML IV SCH (22:56)
[2016-05-04] MEDS ORDERED: PHARMACY ORDERED LAB XX ONE (23:45)
[2016-05-05] VITALS (7 sets, daily range): BP systolic 102–119; BP diastolic 58–73; PULSE 68–95; RESP 17–20; TEMP 96.3–97.7; O2SAT 95–98
[2016-05-05] MEDS: MORPHINE SULFATE 4 MG/ML INJ IV PUSH PRN ×5 (03:45→19:49)
[2016-05-05] MEDS: PIPERACIL-TAZO 3.375 GM PREMIX 50 ML IV SCH ×3 (04:15→19:52)
[2016-05-05] MEDS: INSULIN ASPART SUPPLEMENTAL SCALE SQ SCH ×4 (06:21→20:21)
--- NOTE | 2016-05-05 07:05 | MP ---
cc: [facility] DATE OF SURGERY 05/04/2016 DATE OF 1940 PREOPERATIVE DIAGNOSIS Right second digit hammertoe with metatarsalgia, left second digit osteomyelitis ulcer with osteomyelitis of second metatarsal. POSTOPERATIVE DIAGNOSIS Right second digit hammertoe with metatarsalgia, left second digit osteomyelitis ulcer with osteomyelitis of second metatarsal. PROCEDURES PERFORMED 1. Right second digit flexor tenotomy with second metatarsal head resection 2. Second digit amputation with second metatarsal head resection, ulcer ellipse and closure of plantar foot wound. SPECIMENS Bone right foot for pathological analysis, also a micro swab of bone for microbial analysis. ESTIMATED BLOOD LOSS Less than 50 mL ANESTHESIA General with local block 20 cc of 0.25% Marcaine plain HEMOSTASIS Approximately 15 minutes on the right at 215 mmHg about the ankle and on the left approximately 30 minutes 250 mmHg about the left ankle. PROCEDURE IN DETAIL Under mild sedation, the patient was brought into the operating room, placed on the operating room table in the supine position. Following the induction of general anesthesia, the bilateral lower extremities were scrubbed, prepped and draped in the usual aseptic fashion. The feet were elevated, exsanguinated and the previously placed mid calf tourniquet was inflated 250 mmHg. This was performed on the right first. An incision was made at the plantar aspect of the second digit PIPJ. Sharp and blunt dissection was carried down to the flexor digitorum longus tendon which was sharply severed releasing hammertoe contracture. The wound was then closed. Next, an incision was made over the dorsal aspect of the second metatarsal. Sharp and blunt dissection was carried down. A linear capsulotomy was performed allowing observation of the second metatarsal. The second metatarsal was then resected relieving plantar pressure. There was no communication with the plantar foot. There were no clinical signs of infection, however the bone was now sent for pathological analysis and a swab taken at the resection site of the right second metatarsal. The wound was then closed in layers. A bulky bandage placed. There is was hemostasis. The left lower extremity was then elevated, exsanguinated and a previously placed mid calf tourniquet was inflated to 250 mmHg. An elliptical incision was made fishmouth type full-thickness down to the MPJ disarticulating the second metatarsal. There was noted be chronic bone changes at the base of the proximal phalanx and possibly at the head of the metatarsal. At this time, the second metatarsal head was then resected just beyond the cartilaginous surface to viable bleeding bone. This appeared to be absent obvious clinical signs of infection. A deep culture taken at this time of the bone sent for pathological analysis. The wound flushed with copious amounts of normal saline, closed in layers. Next, an elliptical incision was performed of the plantar foot of an ulcer measuring approximately 2-1/2 cm x 1 cm. This was to viable bleeding borders. There was communication deep to the joint capsule, however, there was no obvious abscess or tracking along the flexor tendons. The wound was flushed copious amounts of normal saline and then closed utilizing nylon. Packing was then placed within the wound. Upon relieving the tourniquet, there is a prompt hyperemic response to all digits without any delayed capillary fill. A bulky bandage was placed on the bilateral feet. The patient transferred from OR to PACU with all vital signs stable. The patient should be complete bedrest release the first 24 hours. We will continue to follow along the bone path and culture. Anticipate discharge once we know if margins are clear. Continue antibiotics. I will see the patient within 24 hours. CANDELARIA Duenas/ASHVIN /6:21 PM /6:58 AM
[2016-05-05] MEDS: SODIUM CHLORIDE 0.9% FLUSH 5 ML FLUSH FLUSH SCH ×2 (08:41→19:52)
[2016-05-05] MEDS: METOPROLOL TARTRATE 50 MG TAB PO SCH ×2 (08:41→19:54)
[2016-05-05] MEDS: DIGOXIN 0.125 MG TAB PO SCH (08:41)
--- NOTE | 2016-05-05 11:05 | HHI.PR ---
Subjective Remarks Patient reports that he is doing well post op. Pain is controlled. Objective Vitals Vital Signs Date Time Temp Pulse Resp B/P Pulse Ox O2 Delivery O2 Flow Rate FiO2 05/05/16 08:48 Room Air 05/05/16 08:00 96.8 90 18 113/69 98 05/05/16 07:58 20 05/05/16 04:10 96.7 68 20 119/69 96 05/05/16 00:00 96.3 95 17 104/60 95 05/04/16 21:15 95 Room Air 21 05/04/16 20:24 96.0 82 16 132/81 99 05/04/16 19:00 97.8 87 15 140/88 99 Nasal Cannula 3 05/04/16 18:30 97 15 130/69 99 Nasal Cannula 3 05/04/16 18:23 97.5 84 15 125/79 99 Nasal Cannula 3 05/04/16 12:00 98.7 68 20 120/68 99 I/O 05/04/16 05/04/16 05/04/16 05/05/16 05/05/16 05/05/16 07:00 15:00 23:00 07:00 15:00 23:00 Intake Total 0 ml 1011 ml Output Total 650 ml 20 ml 200 ml Balance -650 ml 991 ml -200 ml Intake Oral 0 ml IV Total 311 ml Other 700 ml Output Urine Total 650 ml 0 ml 200 ml Estimated Blood Loss 20 ml # Bowel Movements 0 Result Diagram: 05/03/16 1155 05/04/16 0750 Imaging Last Impressions Foot MRI 05/03/16 0000 Signed Impressions: Service Date/Time: Tuesday, May 03, 2016 14:04 - CONCLUSION: 1. Deep soft tissue ulcer plantar/medial forefoot and with associated osteomyelitis of the second toe proximal phalanx and focally of the plantar margin of the second metatarsal head. 2. Reactive versus infectious myositis extends proximally to the level of the hindfoot, primarily within the flexor digitorum brevis muscle. No drainable abscess. Ian Fernandes MD Objective Remarks GENERAL: This is a well-nourished, well-developed patient, in no apparent distress. CARDIOVASCULAR: Normal rate and regular rhythm without murmurs, gallops, or rubs. RESPIRATORY: Good respiratory efforts. Breath sounds equal and clear to auscultation bilaterally. GASTROINTESTINAL: Abdomen soft, non-tender, non-distended. Normal active bowel sounds MUSCULOSKELETAL: Bilateral feet with postop dressing/wrap. Appear intact. NEURO: Alert & Oriented x4 to person, place, time, situation. Moves all ext x4 PSYCH: Appropriate mood and affect. A/P Assessment and Plan 75-year-old male patient with: Diabetic left foot wound/osteomyelitis Failed outpatient therapy Dr. España following. Patient is status post Right second digit flexor tenotomy with second metatarsal head resection 2. Second digit amputation with second metatarsal head resection, ulcer ellipse and closure of plantar foot wound.Plan for debridement today. -Continue Zosyn and vancomycin with pharmacy to dose - Follow pathology. Diabetes mellitus: hold glimepiride and metformin Accu-Cheks before meals at bedtime with sliding scale insulin coverage Resume Levemir 32 units daily at bedtime Atrial fibrillation continue digoxin and metoprolol Resume Coumadin. DVT prophylaxis patient was on Coumadin prior to admission currently on hold Ankita Duarte MD May 05, 2016 11:05
[2016-05-05] MEDS ORDERED: PHARMACY ORDERED LAB XX ONE (15:45)
[2016-05-05] MEDS: VANCOMYCIN INJ 1,500 MG in SODIUM CHLORID 0.9% 500 ML INJ 500 ML IV SCH (16:31)
[2016-05-05] MEDS: WARFARIN SOD 5 MG TAB PO SCH (18:08)
[2016-05-05] MEDS: GABAPENTIN 300 MG CAP PO SCH (19:54)
[2016-05-05] MEDS: INSULIN DETEMIR 100 UNITS/ML VIAL SQ SCH (21:00)
[2016-05-06] VITALS: BP 99/58; PULSE 69; RESP 16; TEMP 98.2; O2SAT 96
[2016-05-06 04:00] VITALS: BP 116/69; PULSE 68; RESP 16; TEMP 96.5; O2SAT 95
[2016-05-06] MEDS: PIPERACIL-TAZO 3.375 GM PREMIX 50 ML IV SCH ×3 (04:34→20:11)
[2016-05-06] MEDS: INSULIN ASPART SUPPLEMENTAL SCALE SQ SCH ×4 (04:42→21:00)
[2016-05-06] MEDS: MORPHINE SULFATE 4 MG/ML INJ IV PUSH PRN ×6 (05:30→23:04)
[2016-05-06 07:36] LABS: HEMATOCRIT 32.6 % (39.0-51.0); MEAN CELL VOLUME 95.9 FL (80.0-100.0); MEAN CORPUSCULAR HEMOGLOBIN 31.7 PG (27.0-34.0); MEAN CORPUSCULAR HGB CONC 33.1 % (32.0-36.0); PLATELET COUNT 243 TH/MM3 (150-450); REVIEW FLAG FINAL; WHITE BLOOD COUNT 9.6 TH/MM3 (4.0-11.0)
[2016-05-06 07:49] LABS: INTERNATIONAL NORMALIZED RATIO 3.5 RATIO; PROTHROMBIN TIME - PATIENT 40.8 SEC (9.8-11.6)
[2016-05-06 08:00] VITALS: BP 117/70; PULSE 76; RESP 16; TEMP 97.3; O2SAT 95
[2016-05-06 08:21] LABS: BICARBONATE 24.1 MEQ/L (21.0-32.0); POTASSIUM 4.1 MEQ/L (3.5-5.1)
[2016-05-06] MEDS: DIGOXIN 0.125 MG TAB PO SCH (08:52)
[2016-05-06] MEDS: METOPROLOL TARTRATE 50 MG TAB PO SCH ×2 (08:52→20:17)
[2016-05-06] MEDS: SODIUM CHLORIDE 0.9% FLUSH 5 ML FLUSH FLUSH SCH ×2 (09:00→20:18)
--- NOTE | 2016-05-06 10:46 | PD.POD ---
Subjective Pain score: 2 Remarks Doing well moderate pain Past Med/Surg/Social History Social History Smoking Status: Never Smoker Objective Vital Signs Vital Signs Date Time Temp Pulse Resp B/P Pulse Ox O2 Delivery O2 Flow Rate FiO2 05/06/16 08:00 97.3 76 16 117/70 95 05/06/16 05:44 19 05/06/16 04:00 96.5 68 16 116/69 95 05/06/16 00:00 98.2 69 16 99/58 96 05/05/16 21:00 97 Room Air 21 05/05/16 20:00 97.7 75 18 118/73 97 05/05/16 16:00 96.3 70 18 116/65 97 05/05/16 12:00 97.3 89 18 102/58 97 Coded Allergies: No Known Allergies (Unverified , 05/03/16) Medications and IVs Administered Medications Medications (Trade) Dose Ordered Sig/Cornelio Route PRN Reason Start Time Stop Time Status Last Admin Dose Admin Digoxin (Lanoxin) 0.125 mg DAILY PO 05/04/16 09:00 05/06/16 08:52 Gabapentin (Neurontin) 300 mg HS PO 05/03/16 21:00 05/05/16 19:54 Metoprolol Tartrate (Lopressor) 50 mg BID PO 05/03/16 21:00 05/06/16 08:52 IV Flush 2 ml 2 ml BID FLUSH 05/03/16 21:00 05/06/16 09:00 Piperacillin Sod/ Tazobactam Sod (Zosyn 3.375 Gm Premix) 50 ml @ 100 mls/hr Q8H IV 05/03/16 20:00 05/06/16 04:34 Morphine Sulfate (Morphine Inj) 2 mg Q3H PRN IV PUSH pain >5 05/04/16 22:00 05/06/16 08:58 Warfarin Sodium (Coumadin) 5 mg DAILY@1600 PO 05/05/16 18:00 05/05/16 18:08 Other Results Laboratory Tests Test 05/06/16 06:53 White Blood Count 9.6 TH/MM3 Red Blood Count 3.40 MIL/MM3 Hemoglobin 10.8 GM/DL Hematocrit 32.6 % Mean Corpuscular Volume 95.9 FL Mean Corpuscular Hemoglobin 31.7 PG Mean Corpuscular Hemoglobin 33.1 % Concent Red Cell Distribution Width 15.0 % Platelet Count 243 TH/MM3 Mean Platelet Volume 7.1 FL Laboratory Tests Test 05/06/16 06:53 Sodium Level 139 MEQ/L Potassium Level 4.1 MEQ/L Chloride Level 105 MEQ/L Carbon Dioxide Level 24.1 MEQ/L Anion Gap 10 MEQ/L Blood Urea Nitrogen 20 MG/DL Creatinine 1.34 MG/DL Estimat Glomerular Filtration 52 ML/MIN Rate Random Glucose 157 MG/DL Calcium Level 8.3 MG/DL Microbiology Date/Time Procedure Status Source Growth 05/03/16 11:55 Aerobic Blood Culture - Preliminary Resulted Blood Peripheral NO GROWTH IN 2 DAYS 05/03/16 11:55 Anaerobic Blood Culture - Preliminary Resulted Blood Peripheral NO GROWTH IN 2 DAYS 05/03/16 11:55 Aerobic Blood Culture - Preliminary Resulted Blood Peripheral NO GROWTH IN 2 DAYS 05/03/16 11:55 Anaerobic Blood Culture - Preliminary Resulted Blood Peripheral NO GROWTH IN 2 DAYS 05/03/16 11:55 Gram Stain - Final Complete Wound Toe 05/03/16 11:55 Wound Culture - Final Complete Staphylococcus Aureus 05/04/16 17:45 Gram Stain - Final Resulted Abscess Foot 05/04/16 17:45 Wound Culture - Preliminary Resulted Streptococcus Species 05/04/16 17:45 Acid Fast Stain - Final Resulted Abscess Foot NO ACID FAST BACILLI SEEN 05/04/16 17:45 Mycobacterial Culture Resulted Abscess Foot Pending 05/04/16 17:45 Gram Stain - Final Resulted Abscess Foot 05/04/16 17:45 Wound Culture - Preliminary Resulted Abscess Foot NO GROWTH IN 48 HOURS. 05/04/16 17:45 Acid Fast Stain - Final Resulted Abscess Foot NO ACID FAST BACILLI SEEN 05/04/16 17:45 Mycobacterial Culture Resulted Abscess Foot Pending 05/04/16 17:45 Fungal Smear - Final Resulted Abscess Foot NO FUNGAL ELEMENTS SEEN. 05/04/16 17:45 Fungal Culture Resulted Abscess Foot Pending 05/04/16 19:48 Acid Fast Stain Received Abscess Foot Pending 05/04/16 19:48 Mycobacterial Culture Received Abscess Foot Pending Bone path pending from surgery Exam-Podiatry Remarks Right foot- incision well coapted 2nd MPJ, contracture of 2nd digit improved, minimal drainage edema, dry eschar 2nd toe, foot is warm sensation decreased left foot- amputation site well coapted 2nd digit with wound closure.minimal drainage edema, foot is warm sensation decreased Assessment & Plan A/P Right 2nd digit hammertoe, ulcer Left 2nd digit OM, ulcer SP right 2nd digit flexor tenotomy, with 2nd metatarsal resection, left 2nd digit amputation with 2nd metatarsal resection, ulcer ellipse and closure. Bandage changed doing well continue limited WB, awaiting path before DC home, IV vs PO. Bebeto España DPM May 06, 2016 10:46
[2016-05-06 12:00] VITALS: BP 111/68; PULSE 70; RESP 18; TEMP 98; O2SAT 95
[2016-05-06] MEDS: VANCOMYCIN INJ 1,250 MG in SODIUM CHLOR 0.9% 250 ML INJ 250 ML IV SCH (12:12)
--- NOTE | 2016-05-06 12:27 | HHI.PR ---
Subjective Remarks Patient reports that he is feeling well. Pain is controlled. Objective Vitals Vital Signs Date Time Temp Pulse Resp B/P Pulse Ox O2 Delivery O2 Flow Rate FiO2 05/06/16 08:00 97.3 76 16 117/70 95 05/06/16 05:44 19 05/06/16 04:00 96.5 68 16 116/69 95 05/06/16 00:00 98.2 69 16 99/58 96 05/05/16 21:00 97 Room Air 21 05/05/16 20:00 97.7 75 18 118/73 97 05/05/16 16:00 96.3 70 18 116/65 97 I/O 05/05/16 05/05/16 05/05/16 05/06/16 05/06/16 05/06/16 06:59 14:59 22:59 06:59 14:59 22:59 Intake Total 1330 ml 120 ml Output Total 200 ml 1400 ml Balance -200 ml -70 ml 120 ml Intake Oral 1330 ml 120 ml Output Urine Total 200 ml 1400 ml Result Diagram: 05/06/16 0653 05/06/16 0653 Objective Remarks GENERAL: This is a well-nourished, well-developed patient, in no apparent distress. CARDIOVASCULAR: Normal rate and regular rhythm without murmurs, gallops, or rubs. RESPIRATORY: Good respiratory efforts. Breath sounds equal and clear to auscultation bilaterally. GASTROINTESTINAL: Abdomen soft, non-tender, non-distended. Normal active bowel sounds MUSCULOSKELETAL: Bilateral feet with postop dressing/wrap. Appear intact. NEURO: Alert & Oriented x4 to person, place, time, situation. Moves all ext x4 PSYCH: Appropriate mood and affect. A/P Assessment and Plan 75-year-old male patient with: Diabetic left foot wound/osteomyelitis Failed outpatient therapy Dr. España following. Patient is status post Right second digit flexor tenotomy with second metatarsal head resection 2. Second digit amputation with second metatarsal head resection, ulcer ellipse and closure of plantar foot wound.Plan for debridement today. -Continue Zosyn and vancomycin with pharmacy to dose - Follow pathology to determine whether or not he needs oral versus IV antibiotics. Podiatry following. Diabetes mellitus: hold glimepiride and metformin Accu-Cheks before meals at bedtime with sliding scale insulin coverage Resume Levemir 32 units daily at bedtime Atrial fibrillation continue digoxin and metoprolol Resume Coumadin. DVT prophylaxis: On Coumadin. Ankita Shore MD May 06, 2016 12:27
[2016-05-06 16:00] VITALS: BP 108/71; PULSE 100; RESP 20; TEMP 97.9; O2SAT 95
[2016-05-06] MEDS: WARFARIN SOD 5 MG TAB PO SCH (16:00)
[2016-05-06 19:00] VITALS: BP 134/74; PULSE 80; RESP 17; TEMP 99.2; O2SAT 97
[2016-05-06] MEDS: GABAPENTIN 300 MG CAP PO SCH (20:17)
[2016-05-06] MEDS: INSULIN DETEMIR 100 UNITS/ML VIAL SQ SCH (22:07)
[2016-05-07] VITALS: BP 101/67; PULSE 62; RESP 16; TEMP 98.8; O2SAT 96
[2016-05-07 04:00] VITALS: BP 115/68; PULSE 67; RESP 17; TEMP 98.3; O2SAT 96
[2016-05-07] MEDS: PIPERACIL-TAZO 3.375 GM PREMIX 50 ML IV SCH ×3 (04:39→20:58)
[2016-05-07] MEDS: INSULIN ASPART SUPPLEMENTAL SCALE SQ SCH ×4 (04:43→20:59)
[2016-05-07] MEDS: MORPHINE SULFATE 4 MG/ML INJ IV PUSH PRN ×2 (05:03→07:57)
[2016-05-07] MEDS: VANCOMYCIN INJ 1,250 MG in SODIUM CHLOR 0.9% 250 ML INJ 250 ML IV SCH (06:54)
[2016-05-07 07:39] LABS: HEMATOCRIT 33.8 % (39.0-51.0); MEAN CELL VOLUME 96.8 FL (80.0-100.0); MEAN CORPUSCULAR HEMOGLOBIN 31.5 PG (27.0-34.0); MEAN CORPUSCULAR HGB CONC 32.5 % (32.0-36.0); PLATELET COUNT 241 TH/MM3 (150-450); RED BLOOD COUNT 3.49 MIL/MM3 (4.50-5.90); RED CELL DISTRIBUTION WIDTH 15.4 % (11.6-17.2); REVIEW FLAG FINAL; WHITE BLOOD COUNT 9.9 TH/MM3 (4.0-11.0)
[2016-05-07 07:53] LABS: BICARBONATE 25.9 MEQ/L (21.0-32.0); POTASSIUM 4.1 MEQ/L (3.5-5.1)
[2016-05-07 08:00] VITALS: BP 107/62; PULSE 76; RESP 16; TEMP 97.3; O2SAT 95
[2016-05-07] MEDS: METOPROLOL TARTRATE 50 MG TAB PO SCH ×2 (08:45→20:58)
[2016-05-07] MEDS: DIGOXIN 0.125 MG TAB PO SCH (08:45)
[2016-05-07] MEDS: SODIUM CHLORIDE 0.9% FLUSH 5 ML FLUSH FLUSH SCH ×2 (08:46→20:58)
--- NOTE | 2016-05-07 11:29 | PD.POD ---
Subjective Pain score: 2 Remarks Doing well moderate pain, feeling constipated Past Med/Surg/Social History Social History Smoking Status: Never Smoker Objective Vital Signs Vital Signs Date Time Temp Pulse Resp B/P Pulse Ox O2 Delivery O2 Flow Rate FiO2 05/07/16 08:51 Room Air 05/07/16 08:00 97.3 76 16 107/62 95 05/07/16 05:20 20 05/07/16 04:00 98.3 67 17 115/68 96 05/07/16 00:00 98.8 62 16 101/67 96 05/06/16 21:00 97 Room Air 21 05/06/16 19:00 99.2 80 17 134/74 97 05/06/16 16:00 97.9 100 20 108/71 95 05/06/16 12:00 98.0 70 18 111/68 95 Coded Allergies: No Known Allergies (Unverified , 05/03/16) Medications and IVs Administered Medications Medications (Trade) Dose Ordered Sig/Cornelio Route PRN Reason Start Time Stop Time Status Last Admin Dose Admin Digoxin (Lanoxin) 0.125 mg DAILY PO 05/04/16 09:00 05/07/16 08:45 Gabapentin (Neurontin) 300 mg HS PO 05/03/16 21:00 05/06/16 20:17 Insulin Detemir (Levemir Inj) 32 units HS SQ 05/03/16 21:00 05/06/16 22:07 Metoprolol Tartrate (Lopressor) 50 mg BID PO 05/03/16 21:00 05/07/16 08:45 IV Flush 2 ml 2 ml BID FLUSH 05/03/16 21:00 05/07/16 08:46 Piperacillin Sod/ Tazobactam Sod (Zosyn 3.375 Gm Premix) 50 ml @ 100 mls/hr Q8H IV 05/03/16 20:00 05/07/16 04:39 Morphine Sulfate (Morphine Inj) 2 mg Q3H PRN IV PUSH pain >5 05/04/16 22:00 05/07/16 07:57 Warfarin Sodium 5 mg 5 mg DAILY@1600 PO 05/05/16 18:00 Hold 05/05/16 18:08 Vancomycin HCl/ Sodium Chloride (Vancomycin Inj/ NS 250 ml Inj) 262.5 ml @ 250 mls/hr Q18H IV 05/06/16 13:00 05/07/16 06:54 Other Results Laboratory Tests Test 05/06/16 05/07/16 06:53 06:40 White Blood Count 9.6 TH/MM3 9.9 TH/MM3 Red Blood Count 3.40 MIL/MM3 3.49 MIL/MM3 Hemoglobin 10.8 GM/DL 11.0 GM/DL Hematocrit 32.6 % 33.8 % Mean Corpuscular Volume 95.9 FL 96.8 FL Mean Corpuscular Hemoglobin 31.7 PG 31.5 PG Mean Corpuscular Hemoglobin 33.1 % 32.5 % Concent Red Cell Distribution Width 15.0 % 15.4 % Platelet Count 243 TH/MM3 241 TH/MM3 Mean Platelet Volume 7.1 FL 7.1 FL Laboratory Tests Test 05/06/16 05/07/16 06:53 06:40 Sodium Level 139 MEQ/L 139 MEQ/L Potassium Level 4.1 MEQ/L 4.1 MEQ/L Chloride Level 105 MEQ/L 104 MEQ/L Carbon Dioxide Level 24.1 MEQ/L 25.9 MEQ/L Anion Gap 10 MEQ/L 9 MEQ/L Blood Urea Nitrogen 20 MG/DL 19 MG/DL Creatinine 1.34 MG/DL 1.39 MG/DL Estimat Glomerular Filtration 52 ML/MIN 50 ML/MIN Rate Random Glucose 157 MG/DL 97 MG/DL Calcium Level 8.3 MG/DL 8.4 MG/DL Microbiology Date/Time Procedure Status Source Growth 05/04/16 17:45 Gram Stain - Final Complete Abscess Foot 05/04/16 17:45 Wound Culture - Final Complete Group B Beta Strep 05/04/16 17:45 Acid Fast Stain - Final Resulted Abscess Foot NO ACID FAST BACILLI SEEN 05/04/16 17:45 Mycobacterial Culture Resulted Abscess Foot Pending 05/04/16 17:45 Gram Stain - Final Complete Abscess Foot 05/04/16 17:45 Wound Culture - Final Complete Abscess Foot NO GROWTH IN 72 HRS.--AEROBICALLY OR ... 05/04/16 17:45 Acid Fast Stain - Final Resulted Abscess Foot NO ACID FAST BACILLI SEEN 05/04/16 17:45 Mycobacterial Culture Resulted Abscess Foot Pending 05/04/16 17:45 Fungal Smear - Final Resulted Abscess Foot NO FUNGAL ELEMENTS SEEN. 05/04/16 17:45 Fungal Culture Resulted Abscess Foot Pending 05/04/16 19:48 Acid Fast Stain Received Abscess Foot Pending 05/04/16 19:48 Mycobacterial Culture Received Abscess Foot Pending Physical Exam Remarks Right foot- incision well coapted 2nd MPJ, contracture of 2nd digit improved, minimal drainage edema, dry eschar 2nd toe, foot is warm sensation decreased left foot- amputation site well coapted 2nd digit with wound closure.minimal drainage edema, foot is warm sensation decreased Assessment & Plan A/P Right 2nd digit hammertoe, ulcer Left 2nd digit OM, ulcer SP right 2nd digit flexor tenotomy, with 2nd metatarsal resection, left 2nd digit amputation with 2nd metatarsal resection, ulcer ellipse and closure. Bandage changed doing well continue limited WB, awaiting path before DC home, IV vs PO ABX. Stop Morphine, [place] ordered, may need stool softener- leave up to medicine Post shoes ordered, PT ordered, signing out to Dr Wood to start cover /. Bebeto España DPM May 07, 2016 11:29
[2016-05-07] MEDS ORDERED: ACETAMINOPHEN/HYDROcodone 325 MG/5 MG TAB PO PRN (11:30)
[2016-05-07 12:00] VITALS: BP 109/66; PULSE 74; RESP 16; TEMP 96.3; O2SAT 96
[2016-05-07 16:00] VITALS: BP 115/70; PULSE 70; RESP 16; TEMP 97.9; O2SAT 97
--- NOTE | 2016-05-07 16:17 | HHI.PR ---
Subjective Remarks Patient seen in follow-up for bilateral foot infection status post surgical treatment. Complaining of side effects of nausea and dizziness with narcotics. Patient also says that his sugars are usually better controlled on Lantus as apposed to our Levemir. Plan of care discussed with patient Objective Vitals Vital Signs Date Time Temp Pulse Resp B/P Pulse Ox O2 Delivery O2 Flow Rate FiO2 05/07/16 12:00 96.3 74 16 109/66 96 05/07/16 08:51 Room Air 05/07/16 08:00 97.3 76 16 107/62 95 05/07/16 05:20 20 05/07/16 04:00 98.3 67 17 115/68 96 05/07/16 00:00 98.8 62 16 101/67 96 05/06/16 21:00 97 Room Air 21 05/06/16 19:00 99.2 80 17 134/74 97 I/O 05/06/16 05/06/16 05/06/16 05/07/16 05/07/16 05/07/16 07:00 15:00 23:00 07:00 15:00 23:00 Intake Total 120 ml 720 ml 240 ml 338 ml Output Total 400 ml 800 ml 600 ml Balance 120 ml 320 ml -560 ml -262 ml Intake Oral 120 ml 720 ml 240 ml 240 ml IV Total 0 ml 98 ml Output Urine Total 400 ml 800 ml 600 ml # Voids 2 # Bowel Movements 1 0 0 Result Diagram: 05/07/16 0640 05/07/16 0640 Objective Remarks GENERAL: This is a well-nourished, well-developed patient, in no apparent distress. CARDIOVASCULAR: Regular rate and rhythm without murmurs, gallops, or rubs. RESPIRATORY: Clear to auscultation. Breath sounds equal bilaterally. No wheezes , rales, or rhonchi. GASTROINTESTINAL: Abdomen soft, non-tender, nondistended. Normal active bowel sounds MUSCULOSKELETAL: Bilateral foot dressings in place, other to Extremities without clubbing, cyanosis, or edema. NEURO: Alert & Oriented x4 to person, place, time, situation. Moves all ext x4 Procedures 05/04 right 2nd digit flexor tenotomy, with 2nd metatarsal resection, left 2nd digit amputation with 2nd metatarsal resection, ulcer ellipse and closure. A/P Problem List: (1) Diabetes mellitus type 2 in nonobese ICD Code: E11.9 Status: Acute Plan: Continue Levemir for now Diabetic diet ssi (2) OM (osteomyelitis) ICD Code: M86.9 Status: Acute Plan: Doing well on current antibiotics, Zosyn and vancomycin. Continue postop shoe and pain control. We'll adjust pain medications Now status post right 2nd digit flexor tenotomy, with 2nd metatarsal resection , left 2nd digit amputation with 2nd metatarsal resection, ulcer ellipse and closure. (3) Afib ICD Code: I48.91 Status: Acute Plan: Rate controlled, continue Coumadin pending repeat iNR 05/06 inr 3.5 Discharge Planning 1-2 days [facility] Po Jessica Gutierrez MD May 07, 2016 16:17
[2016-05-07] MEDS: traMADol/ACETAMINOPHEN 37.5/325 1 TAB PO PRN ×2 (17:36→21:00)
[2016-05-07 20:00] VITALS: BP 116/80; PULSE 68; RESP 18; TEMP 97.8; O2SAT 95
[2016-05-07 20:21] LABS: INTERNATIONAL NORMALIZED RATIO 2.7 RATIO; PROTHROMBIN TIME - PATIENT 30.8 SEC (9.8-11.6)
[2016-05-07] MEDS: GABAPENTIN 300 MG CAP PO SCH (20:58)
[2016-05-07] MEDS: INSULIN DETEMIR 100 UNITS/ML VIAL SQ SCH (20:58)
[2016-05-08] VITALS: BP 109/63; PULSE 67; RESP 18; TEMP 97.2; O2SAT 96
[2016-05-08] MEDS ORDERED: PHARMACY ORDERED LAB XX ONE (00:45)
[2016-05-08] MEDS: VANCOMYCIN INJ 1,250 MG in SODIUM CHLOR 0.9% 250 ML INJ 250 ML IV SCH (02:14)
[2016-05-08 03:20] LABS: VANCOMYCIN TROUGH 15.6 MCG/ML (5.0-10.0)
[2016-05-08 04:00] VITALS: BP 114/68; PULSE 69; RESP 18; TEMP 97.4; O2SAT 96
[2016-05-08] MEDS: traMADol/ACETAMINOPHEN 37.5/325 1 TAB PO PRN ×2 (05:40→11:35)
[2016-05-08] MEDS: PIPERACIL-TAZO 3.375 GM PREMIX 50 ML IV SCH ×2 (05:40→11:42)
[2016-05-08] MEDS: INSULIN ASPART SUPPLEMENTAL SCALE SQ SCH ×4 (05:45→20:21)
[2016-05-08] MEDS: SODIUM CHLORIDE 0.9% FLUSH 5 ML FLUSH FLUSH SCH ×2 (10:05→20:28)
[2016-05-08] MEDS: DIGOXIN 0.125 MG TAB PO SCH (10:05)
[2016-05-08] MEDS: METOPROLOL TARTRATE 50 MG TAB PO SCH ×2 (10:05→20:22)
--- NOTE | 2016-05-08 10:19 | HHI.PR ---
Subjective Remarks Later evaluated today in follow-up post surgical podiatry issues. Doing well. Pain well controlled on Ultram. Plan discussed with podiatry at bedside. Dressings unwrapped with podiatry today Objective Vitals Vital Signs Date Time Temp Pulse Resp B/P Pulse Ox O2 Delivery O2 Flow Rate FiO2 05/08/16 09:34 Room Air 05/08/16 06:27 16 05/08/16 04:00 97.4 69 18 114/68 96 05/08/16 00:00 97.2 67 18 109/63 96 05/07/16 20:50 Room Air 05/07/16 20:00 97.8 68 18 116/80 95 05/07/16 16:00 97.9 70 16 115/70 97 05/07/16 12:00 96.3 74 16 109/66 96 I/O 05/07/16 05/07/16 05/07/16 05/08/16 05/08/16 05/08/16 06:59 14:59 22:59 06:59 14:59 22:59 Intake Total 338 ml 720 ml 120 ml 240 ml Output Total 600 ml 200 ml 1500 ml 1100 ml Balance -262 ml 520 ml -1380 ml -860 ml Intake Oral 240 ml 720 ml 120 ml 240 ml IV Total 98 ml Output Urine Total 600 ml 200 ml 1500 ml 1100 ml # Bowel Movements 0 0 0 Result Diagram: 05/07/16 0640 05/08/16 0214 Objective Remarks Left 2nd toe amp, sutures in place right tensor stitches in place GENERAL: This is a well-nourished, well-developed patient, in no apparent distress. CARDIOVASCULAR: Regular rate and rhythm without murmurs, gallops, or rubs. RESPIRATORY: Clear to auscultation. Breath sounds equal bilaterally. No wheezes , rales, or rhonchi. GASTROINTESTINAL: Abdomen soft, non-tender, nondistended. Normal active bowel sounds MUSCULOSKELETAL: Bilateral foot dressings in place, other to Extremities without clubbing, cyanosis, or edema. NEURO: Alert & Oriented x4 to person, place, time, situation. Moves all ext x4 Procedures 05/04 right 2nd digit flexor tenotomy, with 2nd metatarsal resection, left 2nd digit amputation with 2nd metatarsal resection, ulcer ellipse and closure. A/P Problem List: (1) Diabetes mellitus type 2 in nonobese ICD Code: E11.9 Status: Acute Plan: Continue Levemir for now Diabetic diet ssi (2) OM (osteomyelitis) ICD Code: M86.9 Status: Acute Plan: Doing well on current antibiotics, Zosyn and vancomycin. Continue postop shoe and pain control. We'll adjust pain medications Now status post 2nd metatarsal resection, left 2nd digit amputation await path for abx planning (3) Afib ICD Code: I48.91 Status: Acute Plan: Rate controlled, continue Coumadin / inr 2.7 Discharge Planning 1-2 days [facility] Po abx path pending Jessica Vargas MD May 08, 2016 10:19
[2016-05-08 12:00] VITALS: BP 116/74; PULSE 88; RESP 18; TEMP 96.1; O2SAT 96
--- NOTE | 2016-05-08 12:41 | PD.POD ---
Subjective Podiatric Problems s/p Left 2nd ray amputation s/p Left HT/flexor tenotomy and 2nd metatarsal head resection. DOS 05/04/[address] España. Seen this am at bedside with Dr Vargas and no pain. Pain score: 0 Past Med/Surg/Social History Social History Smoking Status: Never Smoker Objective Vital Signs Vital Signs Date Time Temp Pulse Resp B/P Pulse Ox O2 Delivery O2 Flow Rate FiO2 05/08/16 09:34 Room Air 05/08/16 06:27 16 05/08/16 04:00 97.4 69 18 114/68 96 05/08/16 00:00 97.2 67 18 109/63 96 05/07/16 20:50 Room Air 05/07/16 20:00 97.8 68 18 116/80 95 05/07/16 16:00 97.9 70 16 115/70 97 Coded Allergies: No Known Allergies (Unverified , 05/03/16) Other Results Microbiology Date/Time Procedure Status Source Growth 05/04/16 19:48 Acid Fast Stain Received Abscess Foot Pending 05/04/16 19:48 Mycobacterial Culture Received Abscess Foot Pending 05/04/16 17:45 Gram Stain - Final Complete Abscess Foot 05/04/16 17:45 Wound Culture - Final Complete Abscess Foot NO GROWTH IN 72 HRS.--AEROBICALLY OR ... 05/04/16 17:45 Fungal Smear - Final Resulted Abscess Foot NO FUNGAL ELEMENTS SEEN. 05/04/16 17:45 Fungal Culture Resulted Abscess Foot Pending 05/04/16 17:45 Acid Fast Stain - Final Resulted Abscess Foot NO ACID FAST BACILLI SEEN 05/04/16 17:45 Mycobacterial Culture Resulted Abscess Foot Pending Laboratory Tests Test 05/04/16 05/07/16 05/07/16 05/08/16 07:50 06:40 19:42 02:14 Total Bilirubin 0.4 MG/DL Aspartate Amino Transf 13 U/L (AST/SGOT) Alanine Aminotransferase 17 U/L (ALT/SGPT) Alkaline Phosphatase 78 U/L Total Protein 7.8 GM/DL Albumin 2.5 GM/DL White Blood Count 9.9 TH/MM3 Red Blood Count 3.49 MIL/MM3 Hemoglobin 11.0 GM/DL Hematocrit 33.8 % Mean Corpuscular Volume 96.8 FL Mean Corpuscular Hemoglobin 31.5 PG Mean Corpuscular Hemoglobin 32.5 % Concent Red Cell Distribution Width 15.4 % Platelet Count 241 TH/MM3 Mean Platelet Volume 7.1 FL Sodium Level 139 MEQ/L Potassium Level 4.1 MEQ/L Chloride Level 104 MEQ/L Carbon Dioxide Level 25.9 MEQ/L Anion Gap 9 MEQ/L Blood Urea Nitrogen 19 MG/DL Random Glucose 97 MG/DL Calcium Level 8.4 MG/DL Prothrombin Time 30.8 SEC Prothromb Time International 2.7 RATIO Ratio Creatinine 1.34 MG/DL Estimat Glomerular Filtration 52 ML/MIN Rate Vancomycin Level Trough 15.6 MCG/ML Physical Exam Edema: Left lower extremity: none Right lower extremity: none Deformities RLE 2nd digit with intact sutures at the dorsal and planar incision. Stable ulcer at the distal 2nd digit. Reduced HT Rubin erythema at the dorsal incision. No active drainages and no acute soi. LE is warm to warm proximal to distal. Protective sensation is absent. Deformities LLE 2nd ray amputation with intact sutures at the dorsal and planar incision. Rubin erythema at the dorsal incision. No active drainages and no acute soi. LE is warm to warm proximal to distal. Protective sensation is absent. Assessment & Plan Diagnosis: (1) Cellulitis of left foot Status: Acute (2) OM (osteomyelitis) Status: Acute A/P s/p R tenotomy with HT reduction and 2md metatarsal head resection. s/p Left 2nd ray amputation DOS 05/04/[address] España. Plan for with Dr Kasper once d/c Pending pathology for clear margins. Will need abx pending pathology. OK to d/c per Podiatry once abx regime established. Dressing change carried out 05/08/16 OK with WB in post-op shoe with walker. Luisa Wood DPM May 08, 2016 12:41
[2016-05-08] MEDS: ACETAMINOPHEN/CODEINE 300 MG/30 MG TAB PO PRN ×2 (13:23→21:37)
[2016-05-08 16:00] VITALS: BP 129/80; PULSE 70; RESP 20; TEMP 97.6; O2SAT 99
--- NOTE | 2016-05-08 16:07 | HHI.FF ---
Face to Face Verification Diagnosis: (1) OM (osteomyelitis) Physical Therapy Order: Evaluate and Treat, Improve ambulation Home Health Nursing Order: Medical education Wound care and dressing changes IV medication administration I have seen patient Phan Guerrero on 05/08/16. My clinical findings support the need for the requested home health care services because: Ltd mobility - disease progression High risk of falls Infection w/ risk of complications I certify that my clinical findings support that this patient is homebound because: Unsteady gait/balance Jessica Vargas MD May 08, 2016 16:07
--- NOTE | 2016-05-08 16:12 | HHI.FF ---
Infusion Therapy Location of Infusion Therapy: Home Health Care IV Infusion Order Patient Information Appointment Date: May 09, 2016 Patient Weight 87.6 kg Diagnosis: (1) OM (osteomyelitis) Coded Allergies: No Known Allergies (Unverified , 05/03/16) Administer Medication Piperacillin/Tazobactam 3.375 grams IV q 8 hours Start Treatment: May 09, 2016 Stop Treatment: Jun 14, 2016 Additional Information Venous access: PICC Line Additional Instructions [x] Peripheral flush and dressing changes per protocol [x] Implanted port and central set up mechanic automatic line: * Implanted port: 10 ml Normal Saline followed by 5 ml Heparin 100 units/ml Heparin flush after each use and monthly to maintain. [] May leave port accessed during therapy. [] May leave peripheral site accessed for duration of therapy. [x] If patient has SOB or respiratory distress, check oxygen saturation. If less than 90% or clinical signs of respiratory distress, administer oxygen at 2 L/min. via nasal cannula and notify physician. [x] Anaphylaxis/Reaction orders: * Stop infusion. * Keep IV line open with saline flush. * Notify physician. * Monitor vital signs every 15 minutes until symptoms resolve. * Check Oxygen saturation; Oxygen at 2 L/min. via nasal cannula if less than 90% or clinical signs of respiratory distress. * Administer diphenhydramine (Benadryl) 25 mg IV STAT, (unless patient has received as pre-med). May repeat once, if necessary. * Solu-Cortef 250 mg IVP over 30-60 seconds, use 100 mg vials for each dissolution. * Epinephrine (1mg/1 ml) 0.3 mg subcutaneously or IVP now with any signs of respiratory distress. * Check with physician for new additional pre-med orders if patient is re- challenged or re-treated. [x] May remove PICC line when treatment complete, after confirming with Physician. [x] If the patient is admitted to the hospital, the ED, or transferred via [facility] , complete transfer form including medication reconciliation order sheet. Laboratory Tests Weekly Labs: Jesisca Coyle MD May 08, 2016 16:11
--- NOTE | 2016-05-08 16:16 | HHI.FF ---
Infusion Therapy Location of Infusion Therapy: Home Health Care IV Infusion Order Patient Information Appointment Date: May 09, 2016 Patient Weight 87.6 kg Diagnosis: (1) OM (osteomyelitis) Diagnosis Osteomyelitis Coded Allergies: No Known Allergies (Unverified , 05/03/16) Administer Medication Ceftriaxone 1 gram IV q 24 hours Start Treatment: May 09, 2016 Stop Treatment: Jun 21, 2016 Additional Information Venous access: PICC Line Additional Instructions [x] Peripheral flush and dressing changes per protocol [x] Implanted port and central director of online merchandising: * Implanted port: 10 ml Normal Saline followed by 5 ml Heparin 100 units/ml Heparin flush after each use and monthly to maintain. [] May leave port accessed during therapy. [] May leave peripheral site accessed for duration of therapy. [x] If patient has SOB or respiratory distress, check oxygen saturation. If less than 90% or clinical signs of respiratory distress, administer oxygen at 2 L/min. via nasal cannula and notify physician. [x] Anaphylaxis/Reaction orders: * Stop infusion. * Keep IV line open with saline flush. * Notify physician. * Monitor vital signs every 15 minutes until symptoms resolve. * Check Oxygen saturation; Oxygen at 2 L/min. via nasal cannula if less than 90% or clinical signs of respiratory distress. * Administer diphenhydramine (Benadryl) 25 mg IV STAT, (unless patient has received as pre-med). May repeat once, if necessary. * Solu-Cortef 250 mg IVP over 30-60 seconds, use 100 mg vials for each dissolution. * Epinephrine (1mg/1 ml) 0.3 mg subcutaneously or IVP now with any signs of respiratory distress. * Check with physician for new additional pre-med orders if patient is re- challenged or re-treated. [x] May remove PICC line when treatment complete, after confirming with Physician. [x] If the patient is admitted to the hospital, the ED, or transferred via [facility] , complete transfer form including medication reconciliation order sheet. Jessica Vargas MD May 08, 2016 16:16
[2016-05-08] MEDS: WARFARIN SOD 2 MG TAB PO SCH (16:24)
[2016-05-08] MEDS: cefTRIAXone INJ 1,000 MG in SODIUM CHLORIDE 0.9% INJ 100 ML IV SCH (16:45)
--- NOTE | 2016-05-08 19:41 | RADRPT ---
EXAM DATE/TIME: 05/08/2016 19:01 [facility] COMPARISON: No previous studies available for comparison. INDICATIONS : PICC line placement. MEDICAL HISTORY : Diabetes. SURGICAL HISTORY : None. ENCOUNTER: Initial ACUITY: 1 day PAIN SCORE: 0/10 LOCATION: Bilateral chest FINDINGS: A single view of the chest demonstrates the lungs to be symmetrically aerated without evidence of mas s, infiltrate or effusion. The cardiomediastinal contours are unremarkable. Osseous structures are intact. There is a right arm PICC with tip in the superior vena cava. CONCLUSION: No acute cardiopulmonary disease demonstrated. PICC line tip in the superior vena cava. Ian Fernandes MD on May 08, 2016 at 19:39 Board Certified Radiologist. This report was verified electronically.
[2016-05-08 20:00] VITALS: BP 136/93; PULSE 73; RESP 18; TEMP 97.2; O2SAT 99
[2016-05-08] MEDS: INSULIN DETEMIR 100 UNITS/ML VIAL SQ SCH (20:22)
[2016-05-08] MEDS: GABAPENTIN 300 MG CAP PO SCH (20:22)
[2016-05-08] MEDS: RIFAMPIN 150 MG CAP PO SCH (20:28)
[2016-05-09] VITALS: BP 111/65; PULSE 77; RESP 16; TEMP 98.6; O2SAT 97
[2016-05-09] MEDS: ACETAMINOPHEN/CODEINE 300 MG/30 MG TAB PO PRN (03:45)
[2016-05-09 04:00] VITALS: BP 104/65; PULSE 71; RESP 16; TEMP 97.7; O2SAT 97
[2016-05-09] MEDS: INSULIN ASPART SUPPLEMENTAL SCALE SQ SCH ×2 (05:28→12:00)
[2016-05-09 08:00] VITALS: BP 120/67; PULSE 74; RESP 20; TEMP 96.8; O2SAT 94
[2016-05-09] MEDS: DIGOXIN 0.125 MG TAB PO SCH (08:59)
[2016-05-09] MEDS: METOPROLOL TARTRATE 50 MG TAB PO SCH (08:59)
[2016-05-09] MEDS: RIFAMPIN 150 MG CAP PO SCH (09:00)
[2016-05-09] MEDS: SODIUM CHLORIDE 0.9% FLUSH 5 ML FLUSH FLUSH SCH (09:00)
[2016-05-09] MEDS ORDERED: POLYETHYLENE GLYCOL 17 GM PKG PO SCH (09:00)
[2016-05-09 12:00] VITALS: BP_SYST 121; BP_SYST 125; BP_DIAS 68; BP_DIAS 70; PULSE 78; RESP 18; TEMP 97.3; TEMP 97.6; O2SAT 97; O2SAT 98
--- NOTE | 2016-05-09 14:26 | HHI.DS ---
Discharge Summary Admission Date May 03, 2016 at 13:36 Discharge Date: May 09, 2016 Admitting Diagnosis cellulitis left foot rule out osteomyelitis (1) Diabetes mellitus type 2 in nonobese ICD Code: E11.9 (2) OM (osteomyelitis) ICD Code: M86.9 (3) Afib ICD Code: I48.91 (4) Cellulitis of left foot ICD Code: L03.116 Diagnosis: Principal Procedures 05/04 right 2nd digit flexor tenotomy, with 2nd metatarsal resection, left 2nd digit amputation with 2nd metatarsal resection, ulcer ellipse and closure. Brief History - From Admission This is a pleasant 75-year-old male patient with past medical history which includes insulin-dependent diabetes mellitus, bleeding duodenal ulcer myocardial infarction CAD s/p cardiac stent and atrial fibrillation followed by Dr. De Paz. Patient reports approximately 4 months ago he stepped on a slash trimmer with his left foot and has been following with outpatient check scaler reports that the pain left foot has had constant aching pain for the past 4 months but over the past 2 days the pain has been increased has increased in intensity. Patient also reports edema of the left foot with redness over the past 2 days. Patient was referred to the emergency department for MRI and evaluation by Dr. España by his outpatient check scaler. Patient noted to have open ulceration plantar surface left foot and erythema to second digit left foot. Right foot second digit erythematous with ulceration present non- ulceration present plantar surface of right foot as well. Patient denies chest pain shortness of breath nausea vomiting diarrhea constipation fevers or chills CBC/BMP: 05/07/16 0640 05/08/16 0214 Significant Findings Laboratory Tests Test 05/07/16 05/07/16 05/08/16 06:40 19:42 02:14 Red Blood Count 3.49 MIL/MM3 (4.50-5.90) Hemoglobin 11.0 GM/DL (13.0-17.0) Hematocrit 33.8 % (39.0-51.0) Blood Urea Nitrogen 19 MG/DL (7-18) Creatinine 1.39 MG/DL 1.34 MG/DL (0.60-1.30) (0.60-1.30) Estimat Glomerular Filtration 50 ML/MIN (>89) 52 ML/MIN (>89) Rate Calcium Level 8.4 MG/DL (8.5-10.1) Prothrombin Time 30.8 SEC (9.8-11.6) Vancomycin Level Trough 15.6 MCG/ML (5.0-10.0) Imaging Last Impressions Chest X-Ray 05/08/16 0000 Signed Impressions: Service Date/Time: Sunday, May 08, 2016 19:01 - CONCLUSION: No acute cardiopulmonary disease demonstrated. PICC line tip in the superior vena cava. Ian Fernandes MD Foot MRI 05/03/16 0000 Signed Impressions: Service Date/Time: Tuesday, May 03, 2016 14:04 - CONCLUSION: 1. Deep soft tissue ulcer plantar/medial forefoot and with associated osteomyelitis of the second toe proximal phalanx and focally of the plantar margin of the second metatarsal head. 2. Reactive versus infectious myositis extends proximally to the level of the hindfoot, primarily within the flexor digitorum brevis muscle. No drainable abscess. Ian Fernandes MD PE at Discharge Left 2nd toe amp, sutures in place right tensor stitches in place GENERAL: This is a well-nourished, well-developed patient, in no apparent distress. CARDIOVASCULAR: Regular rate and rhythm without murmurs, gallops, or rubs. RESPIRATORY: Clear to auscultation. Breath sounds equal bilaterally. No wheezes , rales, or rhonchi. GASTROINTESTINAL: Abdomen soft, non-tender, nondistended. Normal active bowel sounds MUSCULOSKELETAL: Bilateral foot dressings in place, other to Extremities without clubbing, cyanosis, or edema. NEURO: Alert & Oriented x4 to person, place, time, situation. Moves all ext x4 Pt update on day of discharge The pt was feeling well and anxious to go home. He called his to tell her that he will be going home today. He had questions about dressing changes. Discussed with nursing Hospital Course Diabetic left foot wound Failed outpatient therapy. The pt was started on vancomycin and Zosyn. Podiatry was consulted. Patient is status post right second digit flexor tenotomy with second metatarsal head resection; Second digit amputation with second metatarsal head resection, ulcer ellipse and closure of plantar foot wound; and debridement. Pathology negative for osteomyelitis. The pt will be discharged on IV ceftriaxone and will follow up with podiatry as an outpt. Diabetes mellitus We held his home glimepiride and metformin. He was placed on Accu-Cheks before meals at bedtime with sliding scale insulin coverage. We resumed Levemir 32 units at bedtime. Will hold metformin at discharge as creatinine was slightly elevated. He will follow up with his PCP. Renal insufficiency The pt's metformin will be discontinued upon discharge. He will have a repeat BMP in 3-5 days and will follow up with his PCP. Pt Condition on Discharge: Good Discharge Disposition: Disch w/ Home Health Serv Discharge Time: > 30 minutes Discharge Instructions DIET: Follow Instructions for: Coumadin (Warfarin) Diet Activities you can perform: See Additionl Instruction Follow up Referrals: PCP Follow-up - 1 Week Podiatry - 05/12/16 with Saurav Kasper DPM New Orders: BASIC METABOLIC PROF - 3-5 Days Continued Medications: Digoxin (Digoxin) 0.125 Mg Tab 0.125 MG PO DAILY Regulate Heart Beat Ref 0 TAB Famotidine (Famotidine) 20 Mg Tab 20 MG PO Ref 0 TAB Gabapentin (Gabapentin) 300 Mg Cap 300 MG PO HS Ref 0 CAP Glimepiride (Glimepiride) 2 Mg Tab 2 MG PO BIDAC Blood Sugar Management Ref 0 TAB Insulin Glargine Inj (Lantus Inj) 1,000 Unit/10 Ml Vial 32 UNITS SQ HS Blood Sugar Management Ref 0 VIAL Metoprolol Tartrate (Metoprolol Tartrate) 50 Mg Tab 50 MG PO BID Ref 0 TAB Warfarin (Warfarin) 2.5 Mg Tab 2.5 MG PO DAILY Blood Clot Prevention Ref 0 TAB Warfarin (Warfarin) 5 Mg Tab 5 MG PO DIRECTED ONLY ON SUNDAY Blood Clot Prevention Ref 0 TAB Discontinued Medications: Metformin (Metformin) 500 Mg Tab 500 MG PO BIDPC With meals Blood Sugar Management Ref 0 TAB Zoltan Beltran DO May 09, 2016 14:25
[2016-05-09] MEDS: cefTRIAXone INJ 1,000 MG in SODIUM CHLORIDE 0.9% INJ 100 ML IV SCH (15:07)
[2016-05-09] MEDS: WARFARIN SOD 2 MG TAB PO SCH (15:07)
== END 2016-05-09 16:20 | disposition home health service (06) | DRG 617 ==
LOC: NEPE 10:49 → NEDA 13:36 → N04B 17:02 → HOCA 05-04 19:05
PROVIDERS: ADMIT Hospitalist; ATTEND Hospitalist
PROC: 0L8V0ZZ Division of Right Foot Tendon, Open Approach (ICD-10-PCS; 2016-05-04)
PROC: 0QBN0ZX Excision of Right Metatarsal, Open Approach, Diagnostic (ICD-10-PCS; 2016-05-04)
PROC: 0Y6S0Z0 Detachment at Left 2nd Toe, Complete, Open Approach (ICD-10-PCS; principal; 2016-05-04 16:39)
PROC: 0QBP0ZX Excision of Left Metatarsal, Open Approach, Diagnostic (ICD-10-PCS; 2016-05-04 16:39)
PROC: 02HV33Z Insertion of Infusion Device into Superior Vena Cava, Percutaneous Approach (ICD-10-PCS; 2016-05-08)
DX: E11.69 Type 2 diabetes mellitus with other specified complication (principal); M86.9 Osteomyelitis, unspecified; E11.40 Type 2 diabetes mellitus with diabetic neuropathy, unspecified; L03.116 Cellulitis of left lower limb; E11.621 Type 2 diabetes mellitus with foot ulcer; L97.519 Non-pressure chronic ulcer of other part of right foot with unspecified severity; L97.529 Non-pressure chronic ulcer of other part of left foot with unspecified severity; M20.41 Other hammer toe(s) (acquired), right foot; M77.41 Metatarsalgia, right foot; I25.10 Atherosclerotic heart disease of native coronary artery without angina pectoris; I48.91 Unspecified atrial fibrillation; N28.9 Disorder of kidney and ureter, unspecified; K59.00 Constipation, unspecified; Z95.5 Presence of coronary angioplasty implant and graft; Z79.4 Long term (current) use of insulin; I25.2 Old myocardial infarction; Z79.01 Long term (current) use of anticoagulants; Z87.11 Personal history of peptic ulcer disease
CPT/HCPCS: 36569; 71010; 73720; 76937; 80048; 80053; 80202; 82565; 82948; 83605; 85025; 85027; 85610; 85730; 86140; 86403; 87015; 87040; 87070; 87077; 87102; 87116; 87147; 87186; 87205; 87206; 88304; 88305; 88311; 93005; 96374; 96375; A9579; E0100; J0690; J0696; J1580; J1815; J2250; J2270; J2370; J2405; J2543; J3010; J3370; J7030; J7040; J7050; L3260